=== PATIENT | male | born 1985 | race African-American/Black ===

== ENCOUNTER 2020-01-14 10:29 | Emergency (ER) | payer BC, OTHER ==
[2020-01-14 10:43] VITALS: BP 125/87; PULSE 82; TEMP 98.7; BMI 33.1
--- NOTE | 2020-01-14 11:25 | PDOC ---
History of Present Illness - General Chief Complaint: Hemoptysis Stated Complaint: SPIT BLOOD Time Seen by Provider: 01/14/20 10:56 History Source: Patient Exam Limitations: No Limitations - History of Present Illness Initial Comments: 01/14/20 11:20 Patient is a 34-year-old male who presents to the ED with complaint of "I just want to get myself checked out because my girlfriend's mother of a heart attack yesterday". He states that he has to take care of his girlfriend now and wanted to make sure that he was okay. He also admits to spitting blood this morning which sometimes happens after he brushes his teeth or flosses, but denies flossing this morning. He states the blood did not come from his lungs. He denies any cough, fever, chills, shortness of breath, chest pain. He states he believes he may be prediabetic and wants to get a full body check. He denies any known past medical history or allergies to medications. He states he otherwise feels okay. Past History - Medical History Allergies/Adverse Reactions: Allergies Allergy/AdvReac Type Severity Reaction Status Date / Time No Known Allergies Allergy Verified 01/14/20 10:33 Home Medications: Ambulatory Orders No Home Medications 0 dose .ROUTE UTDICT 07/07/12 Hypercholesterolemia: Yes - Psycho-Social/Smoking History Smoking Status: Yes Smoking History: Current every day smoker Have you smoked in the past 12 months: Yes Number of Cigarettes Smoked Daily: 0 Information on smoking cessation initiated: Yes - Substance Abuse Hx (Audit-C & DAST Scrn) Number of drinks the patient has on a typical day: 1 or 2 How often the patient has six or more drinks on one occasion: Daily or almost daily Score: In Men: 4 or > Positive; In Women: 3 or > Positive: 4 Screen Result (Pos requires Nsg. Audit-10AR): Positive In the last yr the pt used illegal drug/Rx for NonMed reason: Yes Score: Yes response is considered Positive: 1 Screen Result (Positive result requires Nsg. DAST-10): Positive Review of Systems - Review of Systems Comments:: 01/14/20 11:25 - Review of Systems Able to Perform ROS?: Yes Constitutional: No: Fever, Chills, Loss of Appetite, Night Sweats, Weakness HEENTM: No: Eye Pain, Vision changes, Ear Pain, Throat Pain, Throat Swelling, Mouth Pain, Difficulty Swallowing; positive: Spit up blood this morning Respiratory: No: Cough, Shortness of Breath, Wheezing, Sputum Production Cardiac (ROS): No: Chest Pain, Chest Tightness, Palpitations, Irregular Heart Beat, Edema ABD/GI: No: Nausea, Vomiting, Abdominal Pain, Diarrhea : No Dysuria, No Hematuria, No Frequency, No Urgency Musculoskeletal: No: Muscle Pain, Back Pain, Joint Pain, Muscle Weakness, Neck Pain Integumentary: No: Lesions, Rash Neurological: No: Headache, Numbness, Tingling, Weakness, Speech Difficulties *Physical Exam - Vital Signs Last Vital Signs Temp Pulse Resp BP Pulse Ox 98.7 F 82 18 125/87 98 01/14/20 10:33 01/14/20 10:33 01/14/20 10:33 01/14/20 10:33 01/14/20 10:33 - Physical Exam 01/14/20 11:26 - Physical Exam General Appearance: Nourished, Appropriately Dressed, No Distress HEENT: EOMI, Normal Voice, No Pharyngeal Erythema, No Muffled/Hoarse voice, No Tonsillar Exudate, No Tonsillar Erythema, No Nasal Congestion, No Rhinorrhea, Hearing Grossly Normal, TMs Normal, No TM Bulging, No TM Dullness, No TM Erythema Neck: Supple, No Lymphadenopathy (R), No Lymphadenopathy (L), No Rigidity, No Decreased range of motion Respiratory/Chest: Lungs Clear, Normal Breath Sounds. No Respiratory Distress, No Accessory Muscle Use Cardiovascular: Regular Rhythm, Regular Rate, S1, S2 Gastrointestinal/Abdominal: Normal Bowel Sounds, Soft. Non-tender, No Guarding, No Rebound, No Rigidity Musculoskeletal: Normal Inspection. No Decreased Range of Motion Extremity: Normal Capillary Refill, Normal Inspection Integumentary: Normal Color, Dry. No Rash Neurologic: banquet director II-XII NML intact, Fully Oriented, Alert, Normal Mood/Affect, Normal Response ED Treatment Course - RADIOLOGY Radiology Studies Ordered: Category Date Time Status CHEST PA & LAT [RAD] Stat Radiology 01/14/20 11:13 Ordered Medical Decision Making - Medical Decision Making 01/14/20 11:26 Assessment: Patient is a 34-year-old male who "wants to get a full check" since having his girlfriend's mother yesterday. He also admits to spitting blood one time this morning. Plan: -Chest x-ray ordered -I have explained to the patient that he must follow-up with his primary doctor for a full evaluation that includes evaluation for diabetes, or any other underlying medical disorders. I have explained to him that I will order chest x-ray to rule out any lung pathology that could have attributed to his spitting blood once this morning. The patient understands and will follow up with Dr. Ernandez as soon as possible for a full evaluation. 01/14/20 12:02 The patient's chest x-ray is negative for acute pathology. He should follow-up with his primary doctor within 1 to 2 days for repeat evaluation. The patient is stable for discharge and he understands and agrees with this treatment plan. Discharge - Discharge Information Problems reviewed: Yes Clinical Impression/Diagnosis: Spitting blood Condition: Stable Disposition: HOME - Follow up/Referral Referrals: Hu Ernandez MD [Primary Care Provider] - Call tomorrow - Patient Discharge Instructions Additional Instructions: Your exam and work-up in the emergency department were within normal limits. You should follow-up with your primary doctor within 1 to 2 days to get a well check and routine lab work. Get plenty of rest and drink plenty of fluids. - Post Discharge Activity Work/Back to School Note: Back to Work
== END 2020-01-14 12:06 | disposition home or self-care (01) ==
LOC: JERFT 10:29
DX: R58 Hemorrhage, not elsewhere classified (principal)
CPT/HCPCS: 71046-TC-FY; 99283-25